=== PATIENT | male | born 1985 | race Caucasian/White ===

== ENCOUNTER 2016-11-25 04:26 | Emergency (ER) | payer OTHER ==
[~2016-11-25] VITALS: Ht 188 cm; Wt 88.5 kg
--- NOTE | 2016-11-25 04:53 | ED GI/GU/ABDOMINAL COMPLAINT ---
History of Present Illness General Chief Complaint: General Adult Stated Complaint: LEFT SIDE HIP PAIN Source: patient Exam Limitations: no limitations Vital Signs & Intake/Output Vital Signs & Intake/Output Vital Signs Date Time Temp Pulse Resp B/P Pulse O2 O2 Flow FiO2 Ox Delivery Rate 11/25 0508 Room Air 11/25 0443 96.5 77 18 152/90 99 Room Air Allergies Coded Allergies: banana (Severe, 11/25/16) strawberry (Severe, 11/25/16) Triage Note: PT TO TRIAGE C/O RIGHT SIDED FLANK PAIN. PT STATES PAIN HAS BEEN HAPPENING X1 WEEK. PER PT PAIN IS WORSE WHEN HE FIRST WAKES UP AND THEN GETS PROGRESSIVELY LESS PAINFUL THROUGHOUT THE DAY. PAIN IS A CONSTANT PRESSURE, 6/10 PAIN. Triage Nurses Notes Reviewed? yes HPI: Patient presents with a weeklong history of and in his left side. Pain is constant. There are no aggravating or mitigating factors. There is no radiation. There is no nausea or vomiting. There is no dysuria or hematuria. There is no diarrhea. There is no anorexia. 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 Patient became nervous because his friend was diagnosed with a 6 mm kidney stone yesterday. Past History Travel History Traveled to [place] past 21 day No Medical History Any Pertinent Medical History? 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 No Review of Systems Review of Systems Constitutional: Reports: no symptoms. EENTM: Reports: no symptoms. Respiratory: Reports: no symptoms. Cardiovascular: Reports: no symptoms. GI: Reports: see HPI, abdominal pain. Genitourinary: Reports: no symptoms. Musculoskeletal: Reports: no symptoms. Skin: Reports: no symptoms. Neurological/Psychological: Reports: no symptoms. Hematologic/Endocrine: Reports: no symptoms. Immunologic/Allergic: Reports: no symptoms. All Other Systems: Reviewed and Negative Physical Exam Physical Exam General Appearance: well developed/nourished, alert, awake, mild distress Head: atraumatic Eyes: Bilateral: PERRL, EOMI. Ears, Nose, Throat, Mouth: hearing grossly normal, moist mucous membrane Neck: normal inspection, supple, full range of motion Respiratory: normal breath sounds, chest non-tender, no respiratory distress, lungs clear Cardiovascular: regular rate/rhythm, normal peripheral pulses Gastrointestinal: normal bowel sounds, soft, no organomegaly, tenderness (LLQ), NO REBOUND OR GUARDING Back: normal inspection, normal range of motion, CVA tenderness (L) Extremities: normal range of motion Neurologic/Psych: no motor/sensory deficits, awake, alert, oriented x 3, normal gait, normal mood/affect Skin: intact, normal color, warm/dry Core Measures ACS in differential dx? No Severe Sepsis Present: No Septic Shock Present: No Progress Differential Diagnosis: diverticulitis, ureterolithiasis, UTI/pyelo Plan of Care: Orders Procedure Date/time Status URINALYSIS 11/25 449 Complete COMPREHENSIVE METABOLIC PANEL 11/25 449 Complete CBC WITHOUT DIFFERENTIAL 11/25 449 Complete Laboratory Tests 11/25/16 0511: Urine Color YEL, Urine Clarity CLEAR, Urine pH 6.5, Ur Specific [place] 1.015, Urine Protein NEG, Urine Ketones NEG, Urine Nitrite NEG, Urine Bilirubin NEG, Urine Urobilinogen 0.2, Ur Leukocyte Esterase NEG, Ur Microscopic EXAM NOT REQUIRED, Urine Hemoglobin NEG, Urine Glucose NEG 11/25/16 0504: Anion Gap 14, Estimated GFR > 60, BUN/Creatinine Ratio 16.3, Glucose 126 H, Calcium 10.0, Total Bilirubin 0.6, AST 42, ALT 57, Alkaline Phosphatase 73, Total Protein 7.6, Albumin 4.8, Globulin 2.8, Albumin/Globulin Ratio 1.7, CBC w Diff NO MAN DIFF REQ, RBC 5.32, MCV 88.2, MCH 29.8, RDW 13.1, MPV 9.3, Gran % 62.8, Lymphocytes % 27.8, Monocytes % 6.1, Eosinophils % 2.6, Basophils % 0.7, Absolute Granulocytes 4.1, Absolute Lymphocytes 1.8, Absolute Monocytes 0.4, Absolute Eosinophils 0.2, Absolute Basophils 0, PUBS MCHC 33.8 Diagnostic Imaging: Viewed by Me: CT Scan. Discussed w/RAD: CT Scan. Radiology Impression: PATIENT: EYAL HOWE PRESENT AGE: 31 PATIENT ACCOUNT NO: [id number] : 87 LOCATION: [facility] ORDERING PHYSICIAN: FUNMILAYO GUIDO MD SERVICE DATE: 11/25/16 EXAM TYPE: CAT - CT ABD & PELVIS W/O IV CONTRAS EXAMINATION: CT ABDOMEN AND PELVIS WITHOUT CONTRAST CLINICAL INFORMATION: Left flank pain. COMPARISON: None. TECHNIQUE: Multidetector volumetric imaging was performed from the superior aspect of the liver through the pubic symphysis. Sagittal and coronal reformatted images were obtained on the technologist's workstation. DLP: 319 mGy -cm. FINDINGS: LUNG BASES: The visualized lung bases are unremarkable. LIVER, GALLBLADDER, AND BILIARY TREE: The liver is normal in size, shape, and attenuation. No focal hepatic lesion or biliary ductal dilatation is present. The gallbladder is unremarkable with no evidence of radiopaque gallstones, gallbladder wall thickening, or obvious pericholecystic inflammatory changes. PANCREAS: Unremarkable. SPLEEN: Unremarkable. ADRENAL GLANDS: Unremarkable. KIDNEYS AND URETERS: The kidneys are normal in size, shape, and attenuation. No hydronephrosis, hydroureter, or calculi seen. No perinephric stranding. BLADDER: Unremarkable. GASTROINTESTINAL TRACT: The stomach and small bowel appear unremarkable. No dilated loops of bowel or evidence of obstruction. Normal appendix. No colonic wall thickening or inflammatory change. No free air or free fluid. ABDOMINAL WALL: No significant hernia is appreciated. LYMPH NODES: Normal. VASCULAR: Unremarkable. PELVIC VISCERA: The prostate and seminal vesicles are unremarkable. OSSEOUS STRUCTURES: No acute or suspicious osseous abnormalities. IMPRESSION: No suspicious abnormality of the abdomen or pelvis. No hydronephrosis or nephrolithiasis. 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 < Electronically signed in Other Vendor System> SIGNED BY: DONY ABDI MD 11/25/1691 Initial ED EKG: none Comments: Patient has been updated on lab results and CAT scan results questions have been answered. Departure Departure Disposition: HOME OR SELF CARE Condition: Stable Clinical Impression Primary Impression: Abdominal pain, unspecified site Secondary Impressions: Muscle spasm Referrals: PATIENT HAS NO PRIMARY CARE DR (PCP/Family) Additional Instructions: RETURN IF SYMPTOMS WORSEN OR FOR ANY CONCERNS Departure Forms: Customer Survey General Discharge Information Prescriptions: Current Visit Scripts Cyclobenzaprine HCl 1 TAB PO Q8P #20 TAB
[2016-11-25 05:11] LABS: ABSOLUTE BASOPHIL COUNT 0 /CUMM (0.0-0.2); ABSOLUTE EOSINOPHIL COUNT 0.2 /CUMM (0.0-0.7); ABSOLUTE GRANULOCYTE CT 4.1 /CUMM (1.4-6.5); ABSOLUTE LYMPH COUNT 1.8 /CUMM (1.2-3.4); ABSOLUTE MONOCYTE COUNT 0.4 /CUMM (0.10-0.60); BASOPHIL % 0.7 % (0.0-2.0); EOSINOPHIL % 2.6 % (0-5); GRANULOCYTE % 62.8 % (42.2-75.2); HEMATOCRIT 46.9 % (42-52); MEAN CORPUSCULAR HGB 29.8 PG (27.0-31.0); MEAN CORPUSCULAR HGB CONC 33.8 G/DL (33.0-37.0); MEAN CORPUSCULAR VOLUME 88.2 FL (80.0-94.0); MEAN PLATELET VOLUME 9.3 FL (7.4-10.4); PLATELET COUNT 208 /CUMM (130-400); RBC DISTRIBUTION WIDTH 13.1 % (11.5-14.5); RED BLOOD CELL CT 5.32 /CUMM (4.70-6.10); WHITE BLOOD CELL COUNT 6.6 /CUMM (4.8-10.8)
--- NOTE | 2016-11-25 05:30 | CT SCAN REPORT ---
EXAMINATION: CT ABDOMEN AND PELVIS WITHOUT CONTRAST CLINICAL INFORMATION: Left flank pain. COMPARISON: None. TECHNIQUE: Multidetector volumetric imaging was performed from the superior aspect of the liver through the pubic symphysis. Sagittal and coronal reformatted images were obtained on the technologist's workstation. DLP: 319 mGy-cm. FINDINGS: LUNG BASES: The visualized lung bases are unremarkable. LIVER, GALLBLADDER, AND BILIARY TREE: The liver is normal in size, shape, and attenuation. No focal hepatic lesion or biliary ductal dilatation is present. The gallbladder is unremarkable with no evidence of radiopaque gallstones, gallbladder wall thickening, or obvious pericholecystic inflammatory changes. PANCREAS: Unremarkable. SPLEEN: Unremarkable. ADRENAL GLANDS: Unremarkable. KIDNEYS AND URETERS: The kidneys are normal in size, shape, and attenuation. No hydronephrosis, hydroureter, or calculi seen. No perinephric stranding. BLADDER: Unremarkable. GASTROINTESTINAL TRACT: The stomach and small bowel appear unremarkable. No dilated loops of bowel or evidence of obstruction. Normal appendix. No colonic wall thickening or inflammatory change. No free air or free fluid. ABDOMINAL WALL: No significant hernia is appreciated. LYMPH NODES: Normal. VASCULAR: Unremarkable. PELVIC VISCERA: The prostate and seminal vesicles are unremarkable. OSSEOUS STRUCTURES: No acute or suspicious osseous abnormalities. IMPRESSION: No suspicious abnormality of the abdomen or pelvis. No hydronephrosis or nephrolithiasis.
[2016-11-25 05:59] VITALS: BP 139/78
[2016-11-25] MEDS ORDERED: CYCLOBENZAPRINE10 M1 PO (05:59)
== END 2016-11-25 06:20 ==
LOC: ERH 04:26
PROVIDERS: Emergency Medicine
DX: R10.32 Left lower quadrant pain (principal); M62.838 Other muscle spasm
CPT/HCPCS: 74176; 81003; 96361; 96374; J1885

== ENCOUNTER 2016-11-28 04:10 | Emergency (ER) | payer OTHER ==
[~2016-11-28 04:10] MED LIST: CYCLOBENZAPRINE10 M1 PO
--- NOTE | 2016-11-28 04:55 | ED NECK/BACK PAIN COMPLAINT ---
History of Present Illness General Chief Complaint: General Adult Stated Complaint: LEFT FLANK PAIN Source: patient, old records Exam Limitations: no limitations Allergies Coded Allergies: banana (Severe, 11/25/16) strawberry (Severe, 11/25/16) Reconcile Medications Cyclobenzaprine HCl 5 MG TABLET 1 TAB PO TIDPRN muscle strain Cyclobenzaprine HCl 10 MG TABLET 1 TAB PO Q8P PAIN OR SPASM Ibuprofen 800 MG TABLET 1 TAB PO TID costochondritis Triage Note: PT C/O SHARP PAIN RT POSTERIOR CHEST WALL WORSE WITH BREATHING STARTED 1 HR AGO Triage Nurses Notes Reviewed? yes HPI: 31/M with no known PMH who presented to [facility] 3 days ago complaining of left lower abdominal pain and left flank pain, presented today complaining of left upper back pain that started 1 hour ago and is getting worse. Pain is 7 out of 10, constant, nonradiating, increased with deep breath and movement. Patient did not try anything to relieve the pain. She reported some dry cough however he added that this is his baseline as a smoker. 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 Patient denies chest pain, abdominal pain, nausea, vomiting, fever, chills, diarrhea or constipation. 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 none Family History Hx Contributory? No (ESTER WILLOUGHBY,SARIKA) Review of Systems Review of Systems Constitutional: Reports: see HPI. Denies: chills, diaphoresis, fever. (LORRIE WILLOUGHBY,ISMAIL) Review of Systems Constitutional: Reports: no symptoms. Eyes: Reports: no symptoms. Ears, Nose, Throat, Mouth: Reports: no symptoms. Respiratory: Reports: no symptoms. Cardiovascular: Reports: see HPI, chest pain. Gastrointestinal/Abdominal: Reports: no symptoms. Musculoskeletal: Reports: see HPI, muscle pain, muscle stiffness. Skin: Reports: no symptoms. Neurological/Psychological: Reports: no symptoms. All Other Systems: Reviewed and Negative (ESTER WILLOUGHBY,SARIKA) Physical Exam Physical Exam General Appearance: well developed/nourished, no apparent distress, alert, mild distress Eyes: Bilateral: normal appearance, PERRL, EOMI. Neck: normal inspection, full range of motion Respiratory: normal breath sounds, chest non-tender, no respiratory distress Cardiovascular: regular rate/rhythm Gastrointestinal: soft, non-tender Back: decreased range of motion because of pain, mild left flank pain, tenderness over the left upper back as part spinal (LORRIE WILLOUGHBY,[facility]) Physical Exam General Appearance: well developed/nourished, mild distress Head: atraumatic Eyes: Bilateral: PERRL, EOMI. Ears, Nose, Throat, Mouth: hearing grossly normal Respiratory: normal breath sounds Cardiovascular: regular rate/rhythm Peripheral Pulses: 4+ carotid (R), 4+ carotid (L) Gastrointestinal: soft, non-tender Back: normal inspection Extremities: normal range of motion Neurologic/Psych: awake, alert, oriented x 3, normal mood/affect Skin: intact, normal color, warm/dry (SARIKA NORMAN MD) Progress Differential Diagnosis: pneumonia, muscle strain, costochondritis Plan of Care: Orders Procedure Date/time Status URINALYSIS 11/28 0448 Complete Laboratory Tests 11/28/16 0450: Urine Color YEL, Urine Clarity CLEAR, Urine pH 6.0, Ur Specific [place] <= 1.005 , Urine Protein NEG, Urine Ketones NEG, Urine Nitrite NEG, Urine Bilirubin NEG, Urine Urobilinogen 0.2, Ur Leukocyte Esterase NEG, Ur Microscopic EXAM NOT REQUIRED, Urine Hemoglobin NEG, Urine Glucose NEG 3 days ago patient presented to the ED complaining of flank pain, abdominal and pelvis CT was done and was negative for kidney stones or hydronephrosis or any other abdominal pathology. Because of patient cough and left upper back pain we ordered x-ray to exclude pneumonia or any other chest pathology. (LORRIE WILLOUGHBY,ABRAHAN) Diagnostic Imaging: Viewed by Me: Radiology Read. Discussed w/RAD: Radiology Read. CXR Impression: no acute abnormality, no infiltrates (SARIKA NORMAN MD) Departure Departure Disposition: HOME OR SELF CARE Condition: Stable Clinical Impression Primary Impression: Muscle strain Secondary Impressions: Costochondritis Referrals: PATIENT HAS NO PRIMARY CARE DR (PCP/Family) Additional Instructions: Please try to avoid heavy lifting, take medication as prescribed. The ibuprofen when take regularly works as an anti-inflammatory. Please keep in mind not to take this medication on an empty stomach as this increased risk of ulcer. Please come back if symptoms did not improve or become worse. Please follow with primary care doctor within 1 week Departure Forms: Customer Survey General Discharge Information Prescriptions: Current Visit Scripts Ibuprofen 1 TAB PO TID 14 Days Cyclobenzaprine HCl 1 TAB PO TIDPRN #30 TAB (LORRIE WILLOUGHBY,[facility]) Resident Co-Sign Statement Statement: ED Attending supervision documentation- x I saw and evaluated the patient. I have also reviewed all the pertinent lab results and diagnostic results. I agree with the findings and the plan of care as documented in the Resident's documentation. [] I have reviewed the ED Record and agree with the Resident's documentation. [] Additions or exceptions (if any) to the Resident's note and plan are summarized below: [] (SARIKA NORMAN MD)
--- NOTE | 2016-11-28 05:19 | RADIOLOGY REPORT ---
EXAMINATION: XR PORTABLE CHEST CLINICAL INFORMATION: Upper left-sided back pain, worsening with breathing. COMPARISON: None. TECHNIQUE: Portable view of the chest was obtained. FINDINGS: The lungs are well expanded. There is no focal consolidation, edema, or effusion. No pneumothorax. The cardiomediastinal silhouette is within normal limits. No acute osseous abnormality. IMPRESSION: Clear lungs.
[2016-11-28] MEDS ORDERED: CYCLOBENZAPRINE5 M2 PO (05:51)
[2016-11-28] MEDS ORDERED: IBUPROFEN800 M1 PO (05:51)
[2016-11-28 06:00] VITALS: BP 125/73
== END 2016-11-28 06:01 ==
LOC: ERH 04:10
DX: M94.0 Chondrocostal junction syndrome [Tietze] (principal); R10.32 Left lower quadrant pain; M54.6 Pain in thoracic spine
CPT/HCPCS: 81003